=== PATIENT | male | born 1955 | race Caucasian/White ===

== ENCOUNTER 2024-12-28 11:56 | Emergency (ER) | payer MEDICARE ==
[~2024-12-28] VITALS: Ht 172.7 cm; Wt 72.0 kg
[2024-12-28 12:03] VITALS: BP 124/76; PULSE 75; RESP 18; TEMP 36.7; O2SAT 98
[2024-12-28] MEDS ORDERED: IBUP-2028 MT (14:43)
[2024-12-28] MEDS ORDERED: LIDO-53 TP (14:43)
[2024-12-28 15:12] VITALS: TEMP 98
[2024-12-28] MEDS: ACETAMINOPHEN 325MG TABLET PO ONE (15:12)
== END 2024-12-28 15:34 | disposition home or self-care (01) ==
LOC: ER 11:56
DX: G89.29 Other chronic pain (principal); M79.605 Pain in left leg; M16.12 Unilateral primary osteoarthritis, left hip; Z79.899 Other long term (current) drug therapy
CPT/HCPCS: 72170; 73552; 99284

== ENCOUNTER 2025-04-01 00:24 | Emergency (ER) | payer MEDICARE ==
[~2025-04-01] VITALS: Ht 177.8 cm; Wt 91.0 kg
[~2025-04-01 00:24] MED LIST: IBUP-2028 MT; LIDO-53 TP
[2025-04-01 00:36] VITALS: BP 165/71; PULSE 67; RESP 20; O2SAT 100
[2025-04-01 01:54] VITALS: TEMP 98.4
[2025-04-01] MEDS: ACETAMINOPHEN 325MG TABLET PO ONE (01:54)
[2025-04-01] MEDS ORDERED: ACET-2708 MT (04:34)
== END 2025-04-01 05:00 | disposition home or self-care (01) ==
LOC: ER 00:24
DX: M54.16 Radiculopathy, lumbar region (principal); M79.641 Pain in right hand; E11.42 Type 2 diabetes mellitus with diabetic polyneuropathy; Z59.00 Homelessness unspecified
CPT/HCPCS: 73130; 99283